=== PATIENT | male | born 1990 | race American Indian/Alaskan Native ===

== ENCOUNTER 2017-03-05 23:32 | Emergency (ER) | payer MEDICAID ==
[2017-03-05 23:41] VITALS: BP 99/74
[2017-03-05] MEDS ORDERED: LORazepam 0.5 MG Tab PO ONE (23:41)
[2017-03-06 00:13] LABS: CHLORIDE,CL 108 mmol/L (101-111); SODIUM,NA 143 mmol/L (135-145)
[2017-03-06] MEDS ORDERED: cefTRIAXone 1 GM, Lidocaine 1% 2.1 ML IM ONE ×2 (01:00)
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
== END 2017-03-06 01:25 ==
LOC: DL.ED 23:32
DX: S02.0XXA Fracture of vault of skull, initial encounter for closed fracture (principal); S02.82XA Fracture of other specified skull and facial bones, left side, initial encounter for closed fracture; S02.2XXA Fracture of nasal bones, initial encounter for closed fracture; S82.302A Unspecified fracture of lower end of left tibia, initial encounter for closed fracture; F19.129 Other psychoactive substance abuse with intoxication, unspecified; F10.10 Alcohol abuse, uncomplicated; Y92.89 Other specified places as the place of occurrence of the external cause; Y04.8XXA Assault by other bodily force, initial encounter
CPT/HCPCS: 36415; 70450; 70486; 73600; 80053; 80305; 85025; 99285; A9270; G0480; J0696

== ENCOUNTER 2017-05-24 23:53 | Emergency (ER) | payer MEDICAID ==
[2017-05-25 00:02] VITALS: BP 118/96
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
== END 2017-05-25 00:53 | disposition home or self-care (01) ==
LOC: DL.ED 23:53
DX: F10.129 Alcohol abuse with intoxication, unspecified (principal); F17.210 Nicotine dependence, cigarettes, uncomplicated
CPT/HCPCS: 96372; 99284

== ENCOUNTER 2017-09-21 21:41 | Emergency (ER) | payer MEDICAID ==
[2017-09-21 21:58] VITALS: BP 129/72
--- NOTE | 2017-09-21 22:26 | EDM.PDOC ---
ED HPI GENERAL MEDICAL PROBLEM - General Chief Complaint: Upper Extremity Injury/Pain Stated Complaint: [id number] BROKEN FINGER Time Seen by Provider: 09/21/17 22:10 Source of Information: Reports: Patient History Limitations: Reports: No Limitations - History of Present Illness INITIAL COMMENTS - FREE TEXT/NARRATIVE: This 26 yo male patient reports to the ED with pain in his left finger. The patient reports that he has a congenital abnormality and is not sure if he has bone or cartilage in the appendage. The patient reports he was playing basketball this evening when he heard a "snap" in the finger. Onset: Today Duration: Minutes:, Constant Location: Reports: Upper Extremity, Left Quality: Reports: Ache, Dull Severity: Moderate Improves with: Reports: None Worsens with: Reports: None Associated Symptoms: Reports: No Other Symptoms Left Pain Score (Numeric/FACES): 10 - Related Data Allergies Allergy/AdvReac Type Severity Reaction Status Date / Time No Known Allergies Allergy Verified 09/21/17 21:47 Home Meds: Home Meds Methylphenidate [Ritalin] 10 mg PO ASDIRECTED 11/02/13 [History] Past Medical History - Past Health History Medical/Surgical History: Denies Medical/Surgical History Psychiatric History: Reports: ADHD - Infectious Disease History Infectious Disease History: Reports: Chicken Pox Social & Family History - Family History Family Medical History: Noncontributory - Tobacco Use Smoking Status *Q: Current Every Day Smoker Years of Tobacco use: 7 Packs/Tins Daily: 0.1 - Caffeine Use Caffeine Use: Reports: Soda - Recreational Drug Use Recreational Drug Use: No - Living Situation & Occupation Living situation: Reports: with Family Occupation: Disabled Review of Systems - Review of Systems Review Of Systems: ROS reveals no pertinent complaints other than HPI. ED EXAM, GENERAL - Physical Exam Exam: See Below Exam Limited By: No Limitations General Appearance: Alert, WD/WN, Moderate Distress Eye Exam: Bilateral Eye: Conjunctival Injection, Normal Inspection, PERRL Ears: Normal External Exam, Normal Canal, Hearing Grossly Normal, Normal TMs Nose: Normal Inspection, Normal Mucosa, No Blood Throat/Mouth: Normal Inspection, Normal Lips, Normal Teeth, Normal Gums, Normal Oropharynx, Normal Voice, No Airway Compromise Head: Atraumatic, Normocephalic Neck: Normal Inspection, Supple, Non-Tender, Full Range of Motion Respiratory/Chest: No Respiratory Distress, Lungs Clear, Normal Breath Sounds, No Accessory Muscle Use, Chest Non-Tender Cardiovascular: Normal Peripheral Pulses, Regular Rate, Rhythm, No Edema, No Gallop, No JVD, No Murmur, No Rub GI/Abdominal: Normal Bowel Sounds, Soft, Non-Tender, No Organomegaly, No Distention, No Abnormal Bruit, No Mass (Male) Exam: Deferred Rectal (Males) Exam: Deferred Back Exam: Normal Inspection, Full Range of Motion, NT Extremities: Other (The patient has pain in his distal left appendage. ) Neurological: Alert, Oriented, CN II-XII Intact, Normal Cognition, Normal Gait, Normal Reflexes, No Motor/Sensory Deficits Psychiatric: Normal Affect, Normal Mood Skin Exam: Warm, Dry, Intact, Normal Color, No Rash Lymphatic: No Adenopathy Course - Vital Signs Last Recorded V/S: Last Vital Signs Temp 36.9 C 09/21/17 21:48 Pulse 119 H 09/21/17 21:48 Resp 18 09/21/17 21:48 BP 129/72 09/21/17 21:48 Pulse Ox 97 09/21/17 21:48 - Orders/Labs/Meds Orders: Active Orders 24 hr Category Date Time Status Fingers Thumb Lt FA [CR] Urgent Exams 09/21/17 22:20 Ordered Meds: Medications Discontinued Medications Generic Name Dose Route Start Last Admin Trade Name Megan PRN Reason Stop Dose Admin Hydrocodone Bitart/Acetaminophen 1 tab 09/21/17 22:47 09/21/17 22:51 [place] 325-10 Mg PO 09/21/17 22:48 1 tab ONETIME ONE Administration Lidocaine HCl 30 ml 09/21/17 22:53 09/21/17 22:56 Xylocaine-Mpf 1% INJECT 09/21/17 22:54 5 ml ONETIME ONE Administration Departure - Departure Time of Disposition: 23:08 Disposition: Home, Self-Care 01 Condition: Fair Clinical Impression: Phalanx, distal fracture of finger Qualifiers: Encounter type: initial encounter Finger: thumb Fracture type: closed Fracture alignment: displaced Laterality: left Qualified Code(s): S62.522A - Displaced fracture of distal phalanx of left thumb, initial encounter for closed fracture - Discharge Information Instructions: Finger Fracture, [id number] Referrals: PCP,None [Primary Care Provider] - Forms: ED Department Discharge Care Plan Goals: The patient was advised of the examination and x-ray results during the visit. The patient's fracture was reduced and splinted during the visit. The patient was encouraged to keep the area immobilized. The patient will need to follow-up with an aquatics specialist for continued evaluation and further management. If the patient has any additional symptoms or concerns, the patient should follow-up with his primary care facility or return to the emergency department. - My Orders Last 24 Hours: My Active Orders 09/21/17 22:20 Fingers Thumb Lt FA [CR] Urgent - Assessment/Plan Last 24 Hours: My Active Orders 09/21/17 22:20 Fingers Thumb Lt FA [CR] Urgent
[2017-09-21] MEDS ORDERED: Acetaminophen/HYDROcodone 325-10 MG Tab PO ONE (22:47)
[2017-09-21] MEDS ORDERED: Lidocaine 1% 30 ML SDV INJECT ONE (22:53)
== END 2017-09-21 23:15 | disposition home or self-care (01) ==
LOC: DL.ED 21:41
DX: S62.522A Displaced fracture of distal phalanx of left thumb, initial encounter for closed fracture (principal); F17.210 Nicotine dependence, cigarettes, uncomplicated; X50.9XXA Other and unspecified overexertion or strenuous movements or postures, initial encounter; Y93.67 Activity, basketball
CPT/HCPCS: 73140; 99283; A9270

== ENCOUNTER 2020-10-16 16:08 | Emergency (ER) | payer MEDICAID ==
[2020-10-16 16:29] VITALS: BP 136/90; PULSE 88
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
== END 2020-10-16 18:37 | disposition home or self-care (01) ==
LOC: DL.ED 16:08
DX: S43.401A Unspecified sprain of right shoulder joint, initial encounter (principal); W17.89XA Other fall from one level to another, initial encounter; Y93.I9 Activity, other involving external motion
CPT/HCPCS: 73060-RT; 99282; 99283

== ENCOUNTER 2020-10-28 23:33 | Emergency (ER) | payer MEDICAID ==
[2020-10-29 00:03] VITALS: BP 135/82; PULSE 115
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
[2020-10-29 00:45] LABS: ANION GAP 17.8 mEq/L (7-13); CHLORIDE,CL 106 mmol/L (98-107); SODIUM,NA 143 mmol/L (136-145)
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
[2020-10-29] MEDS ORDERED: Morphine 2 MG/ML SYRINGE IVPUSH ONE (01:45)
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
== END 2020-10-29 02:24 ==
LOC: DL.ED 23:33
DX: F32.9 Major depressive disorder, single episode, unspecified (principal); F10.129 Alcohol abuse with intoxication, unspecified; Z72.0 Tobacco use
CPT/HCPCS: 36415; 70450; 71250; 72125; 74176; 80053; 80305-QW; 80307; 81003; 85025; 96374; 99284; 99285-25; J2270

== ENCOUNTER 2021-11-30 23:10 | Emergency (ER) | payer MEDICAID ==
[2021-11-30 23:48] LABS: AMPHETAMINES,URINE NEGATIVE (NEGATIVE); BARBITURATES,URINE NEGATIVE (NEGATIVE); BENZODIAZEPINE,URINE NEGATIVE (NEGATIVE); MDMA (ECSTASY), URINE NEGATIVE (NEGATIVE); METHADONE,URINE NEGATIVE (NEGATIVE); METHAMPHETAMINES,URINE NEGATIVE (NEGATIVE); OPIATES,URINE NEGATIVE (NEGATIVE); OXYCODONE,URINE NEGATIVE (NEGATIVE); PHENCYCLIDINE,URINE NEGATIVE (NEGATIVE); TCA,URINE NEGATIVE (NEGATIVE)
[2021-12-01] LABS: ANION GAP 19.4 mEq/L (7-13); CHLORIDE,CL 105 mmol/L (98-107); SODIUM,NA 144 mmol/L (136-145)
[2021-12-01 00:03] LABS: ACETAMINOPHEN 0 ug/mL (10-30 (Therapeutic)); ESTIMATED GFR 90 mL/min (>=60)
[2021-12-01 03:46] VITALS: BP 143/90; PULSE 100
== END 2021-12-01 02:29 | disposition home or self-care (01) ==
LOC: DL.ED 23:10
DX: F32.A Depression, unspecified (principal); F10.229 Alcohol dependence with intoxication, unspecified; Y90.8 Blood alcohol level of 240 mg/100 ml or more
CPT/HCPCS: 36415; 80053; 80143; 80179; 80305-QW; 80307; 81001; 85025; 99285

== ENCOUNTER 2024-10-03 16:19 | Emergency (ER) | payer MEDICARE, MEDICAID ==
[2024-10-03 16:27] VITALS: BP 147/83; PULSE 106
[2024-10-03 16:34] LABS: BASOPHILS PERCENT AUTO 0.5 % (0.0-1.0); EOSINOPHILS PERCENT AUTO 4.3 % (1.0-3.0); HEMATOCRIT 48.6 % (40.0-54.0); HEMOGLOBIN 16.4 g/dL (14.0-18.0); LYMPHOCYTES PERCENT AUTO 32.2 % (20.5-50.1); MEAN CORPUSCULAR HEMOGLOBIN 31.7 pg (27.0-34.0); MEAN CORPUSCULAR HGB CONC 33.7 g/dL (33.0-35.0); MONOCYTES PERCENT AUTO 6.9 % (2-8); NEUTROPHILS PERCENT AUTO 56.1 % (42.2-75.2); PLATELET COUNT,PLT 255 10^3/uL (150-450); RED BLOOD CELL COUNT 5.17 10^6/uL (4.6-6.2); WHITE BLOOD CELL COUNT,WBC 7.4 10^3/uL (5.0-10.0)
[2024-10-03] MEDS: Iopamidol 612 MG/ML 100 ML Bottle IVPUSH ONE (16:48)
[2024-10-03 16:54] LABS: A/G RATIO 0.8; ALBUMIN 3.6 g/dL (3.4-5.0); ANION GAP 16.7 mEq/L (7-13); BILIRUBIN TOTAL 0.5 mg/dL (0.2-1.0); BUN/CREATININE RATIO 8.3 (No establ ref range); CALCIUM 8.9 mg/dL (8.5-10.1); CREATININE 0.72 mg/dL (0.70-1.30); EST CRCL DRUG DOSING (CG) 112.7 mL/min; POTASSIUM,K 3.7 mmol/L (3.5-5.1); PROTEIN TOTAL,TP 7.9 g/dL (6.4-8.2)
[2024-10-03 17:01] LABS: INR 1.1 (0.9-1.2)
[2024-10-03] MEDS: Acetaminophen 325 MG Tab PO ONE (17:28)
[2024-10-03] MEDS: Ibuprofen 400 MG Tab PO ONE (17:29)
== END 2024-10-03 17:53 | disposition home or self-care (01) ==
LOC: DL.ED 16:19
DX: S40.021A Contusion of right upper arm, initial encounter (principal); S20.412A Abrasion of left back wall of thorax, initial encounter; Z79.899 Other long term (current) drug therapy; V49.49XA Driver injured in collision with other motor vehicles in traffic accident, initial encounter
CPT/HCPCS: 36415; 70450; 71260; 72125; 74177; 80053; 80307; 85025; 85610; 99283; 99285; A9270; Q9967